=== PATIENT | male | born 1960 | race Hispanic/Latino ===

== ENCOUNTER 2018-06-30 08:16 | Day surgery (SDC) | payer BC ==
[2018-06-30] MEDS ORDERED: Lactated Ringer's 500 ML IV ONE (09:20)
[2018-06-30] MEDS ORDERED: Propofol 10 mg/ml Inj (20 ML) ONE (09:35)
[2018-06-30 11:18] VITALS: TEMP 97.5; O2SAT 97; BMI 23.6
[2018-06-30 11:37] VITALS: BP 112/67; PULSE 70; RESP 14
== END 2018-06-30 11:05 | disposition home or self-care (01) ==
LOC: C.ENDO 08:16
PROVIDERS: ATTEND Internal Medicine Gastroenterology
DX: Z12.11 Encounter for screening for malignant neoplasm of colon (principal); D12.2 Benign neoplasm of ascending colon; K57.30 Diverticulosis of large intestine without perforation or abscess without bleeding; K64.8 Other hemorrhoids
CPT/HCPCS: 45385; 88305; J2704; J7120